=== PATIENT | female | born 1935 | race African-American/Black ===

== ENCOUNTER 2018-03-20 18:55 | Inpatient (IN) | payer MEDICARE ==
[~2018-03-20] VITALS: Ht 162.6 cm; Wt 60.0 kg
--- NOTE | 2018-03-20 20:02 | PHYS DOC ---
Adult General Chief Complaint Chief Complaint: FATIGUE HPI HPI Patient is a 82 year old female who presents with fatigue and altered mental status. Patient was brought to the emergency department by EMS. Family states that they last saw the patient at her normal baseline 2 days ago. The patient lives alone. Patient has no complaints but appears lethargic and is a very poor historian. He states that the patient had a similar episode approximately 6 years ago and was hospitalized for treatment of dehydration. He states that these symptoms are very similar to what she had at that time. Denies any history of dementia. Patient has not been febrile. Family states that the patient has not displayed any strokelike symptoms including unilateral weakness , difficulty with speech or swallowing. They state that she has been somewhat confused. Patient has been reportedly having loose stools and the family thinks that this may have caused her to become dehydrated. Review of Systems Review of Systems Constitutional: Denies fever or chills [] Eyes: Denies change in visual acuity, redness, or eye pain [] HENT: Denies nasal congestion or sore throat [] Respiratory: Denies cough or shortness of breath [] Cardiovascular: Denies chest pain or edema[] GI: Denies abdominal pain, nausea, vomiting, bloody stools or diarrhea [] : Denies dysuria or hematuria [] Musculoskeletal: Denies back pain or joint pain [] Integument: Denies rash or skin lesions [] Neurologic: Denies headache, focal weakness or sensory changes [] All other systems were reviewed and found to be within normal limits, except as documented in this note. Current Medications Current Medications Current Medications Medications (Trade) Dose Ordered Sig/[facility] Start Time Stop Time Status Last Admin Dose Admin Sodium Chloride 1,000 ml @ 1,000 mls/hr Q1H 03/20/18 19:44 03/20/18 20:43 UNV Allergies Allergies Allergies Coded Allergies Type Severity Reaction Last Updated Verified No Known Drug Allergies 03/20/18 No Physical Exam Physical Exam Constitutional: Lethargic, afebrile, no acute distress. [] HENT: Normocephalic, atraumatic, bilateral external ears normal, oropharynx moist, no oral exudates, nose normal. [] Eyes: PERRLA, EOMI, conjunctiva normal, no discharge. [] Neck: Normal range of motion, no tenderness, supple, no stridor. [] Cardiovascular:Heart rate regular rhythm, no murmur [] Lungs & Thorax: Bilateral breath sounds clear to auscultation [] Abdomen: Bowel sounds normal, soft, no tenderness, no masses, no pulsatile masses. [] Skin: Warm, dry, no erythema, no rash. [] Back: No tenderness, no CVA tenderness. [] Extremities: No tenderness, no cyanosis, no clubbing, ROM intact, no edema. [] Neurologic: Lethargic, oriented to person only, normal motor function, normal sensory function, no focal deficits noted. [] Current Patient Data Lab Results Laboratory Tests Test 03/20/18 19:34 03/20/18 21:06 03/20/18 21:45 White Blood Count 8.2 x10^3/uL Red Blood Count 5.14 x10^6/uL Hemoglobin 14.2 g/dL Hematocrit 43.3 % Mean Corpuscular Volume 84 fL Mean Corpuscular Hemoglobin 28 pg Mean Corpuscular Hemoglobin Concent 33 g/dL Red Cell Distribution Width 14.9 % Platelet Count 218 x10^3/uL Neutrophils (%) (Auto) 70 % Lymphocytes (%) (Auto) 21 % Monocytes (%) (Auto) 7 % Eosinophils (%) (Auto) 2 % Basophils (%) (Auto) 1 % Neutrophils # (Auto) 5.7 x10^3uL Lymphocytes # (Auto) 1.7 x10^3/uL Monocytes # (Auto) 0.6 x10^3/uL Eosinophils # (Auto) 0.1 x10^3/uL Basophils # (Auto) 0.1 x10^3/uL Lactic Acid Level 2.3 mmol/L Sodium Level 142 mmol/L Potassium Level 4.6 mmol/L Chloride Level 107 mmol/L Carbon Dioxide Level 29 mmol/L Anion Gap 6 Blood Urea Nitrogen 24 mg/dL Creatinine 1.1 mg/dL Estimated GFR (Cockcroft-Gault) 57.5 BUN/Creatinine Ratio 22 Glucose Level 97 mg/dL Calcium Level 8.0 mg/dL Total Bilirubin 0.3 mg/dL Aspartate Amino Transf (AST/SGOT) 20 U/L Alanine Aminotransferase (ALT/SGPT) 15 U/L Alkaline Phosphatase 95 U/L Total Protein 6.3 g/dL Albumin 2.6 g/dL Albumin/Globulin Ratio 0.7 Lipase 209 U/L Urine Collection Type Unknown Urine Color Yellow Urine Clarity Hazy Urine pH 6.5 Urine Specific [place] 1.015 Urine Protein Neg Urine Glucose (UA) Neg mg/dL Urine Ketones (Stick) Neg mg/dL Urine Blood Neg Urine Nitrite Neg Urine Bilirubin Neg Urine Urobilinogen Dipstick 1 mg/dL Urine Leukocyte Esterase Trace Urine RBC 1-2 /HPF Urine WBC 5-10 /HPF Urine Squamous Epithelial Cells Few /LPF Urine Bacteria Few /HPF Urine Mucus Slight /LPF Current Medications Medications (Trade) Dose Ordered Sig/Ashly Route PRN Reason Start Time Stop Time Status Last Admin Dose Admin Sodium Chloride 1,000 ml @ 1,000 mls/hr Q1H IV 03/20/18 20:30 03/20/18 21:29 DC 03/20/18 20:08 EKG EKG Rhythm strip interpretation by me: Heart rate 78, sinus rhythm, no ectopy[] Radiology/Procedures Radiology/Procedures Head CT and chest x-ray offered but refused by patient's son[] Course & Med Decision Making Course & Med Decision Making Pertinent Labs and Imaging studies reviewed. (See chart for details) Patient started on IV fluids in the emergency department. The patient's chemistry lab work shows an elevated lactic acid level and elevated BOM level consistent with dehydration. Patient has no fever, tachycardiac, and no leukocytosis. Active bacterial infection is thought less likely at this time. I spoke with the patient's son regarding radiographic imaging. He did not feel that this is necessary at this time but was agreeable to IV fluids for treatment. The patient does not display any localizing neurologic symptoms at this time thus I'm willing to respect the patient's son's wishes and withhold CT imaging at this time. Patient however is not appropriate for outpatient treatment at this time and will need continued IV fluids for hydration. I spoke with Dr. Johnson who accepted care of patient in hospital. Dragon Disclaimer Dragon Disclaimer This electronic medical record was generated, in whole or in part, using a voice recognition dictation system. Departure Departure: Impression: Primary Impression: Dehydration Additional Impressions: Fatigue Severe protein-calorie malnutrition Disposition: ADMITTED INPATIENT Admitting Physician: Rebecca Johnson Condition: STABLE Referrals: PCP,NO (PCP) Problem Qualifiers Additional Impressions: Fatigue Fatigue type: unspecified Qualified Codes: R53.83 - Other fatigue DONNA LOPEZ MD Mar 20, 2018 20:02
[2018-03-20 20:05] LABS: BASO # 0.1 x10^3/uL (0.0-0.2); BASO % 1 % (0-3); EOS # 0.1 x10^3/uL (0.0-0.7); EOS % 2 % (0-3); HEMATOCRIT 43.3 % (36.0-47.0); HEMOGLOBIN 14.2 g/dL (12.0-15.5); LYMPH # 1.7 x10^3/uL (1.0-4.8); LYMPH % 21 % (24-48); MEAN CORPUSCULAR HEMOGLOBIN 28 pg (25-35); MEAN CORPUSCULAR HGB CONC 33 g/dL (31-37); MEAN CORPUSCULAR VOLUME 84 fL (79-100); MONO # 0.6 x10^3/uL (0.0-1.1); MONO % 7 % (0-9); NEUT # 5.7 x10^3uL (1.8-7.7); NEUT % 70 % (31-73); PLATELET COUNT 218 x10^3/uL (140-400); RED BLOOD COUNT 5.14 x10^6/uL (3.50-5.40); RED CELL DISTRIBUTION WIDTH 14.9 % (11.5-14.5); WHITE BLOOD COUNT 8.2 x10^3/uL (4.0-11.0)
[2018-03-20] MEDS ORDERED: IV NORMAL SALINE 1,000ML 1,000 ML IV SCH (20:30)
[2018-03-20 21:51] LABS: ALBUMIN 2.6 g/dL (3.4-5.0); ALBUMIN/GLOBULIN RATIO 0.7 (1.0-1.7); CREATININE 1.1 mg/dL (0.6-1.0); GFR 57.5; POTASSIUM 4.6 mmol/L (3.5-5.1); TOTAL BILIRUBIN 0.3 mg/dL (0.2-1.0); TOTAL PROTEIN 6.3 g/dL (6.4-8.2)
[2018-03-20 22:18] LABS: BILIRUBIN,URINE NEG (NEG); CLARITY,URINE HAZY; COLOR,URINE YELLOW; GLUCOSE,URINE NEG (NEG)
[2018-03-20 22:19] LABS: BACTERIA,URINE FEW /HPF (0-FEW); NITRITE,URINE NEG (NEG); SQUAMOUS EPITHELIAL CELL,UR FEW /LPF; UROBILINOGEN,URINE 1 mg/dL (0.2 mg/dL)
[2018-03-20] MEDS ORDERED: ACETAMINOPHEN 325 MG TABLET PO PRN (22:30)
[2018-03-20] MEDS: IV NORMAL SALINE 1,000ML 1,000 ML IV SCH (23:08)
[2018-03-20 23:41] VITALS: BP 176/78
[2018-03-21 05:39] VITALS: BP 159/79
[2018-03-21] MEDS: IV NORMAL SALINE 1,000ML 1,000 ML IV SCH (06:23)
[2018-03-21 06:36] LABS: BASO % 1 % (0-3); EOS # 0.2 x10^3/uL (0.0-0.7); EOS % 2 % (0-3); HEMATOCRIT 39.8 % (36.0-47.0); HEMOGLOBIN 13.1 g/dL (12.0-15.5); LYMPH # 1.6 x10^3/uL (1.0-4.8); LYMPH % 22 % (24-48); MEAN CORPUSCULAR HEMOGLOBIN 28 pg (25-35); MEAN CORPUSCULAR HGB CONC 33 g/dL (31-37); MEAN CORPUSCULAR VOLUME 85 fL (79-100); MONO # 0.5 x10^3/uL (0.0-1.1); MONO % 7 % (0-9); NEUT % 69 % (31-73); PLATELET COUNT 207 x10^3/uL (140-400); RED BLOOD COUNT 4.72 x10^6/uL (3.50-5.40); RED CELL DISTRIBUTION WIDTH 14.9 % (11.5-14.5); WHITE BLOOD COUNT 7.3 x10^3/uL (4.0-11.0)
[2018-03-21 06:41] LABS: CREATININE 0.9 mg/dL (0.6-1.0); GFR 72.5; POTASSIUM 4.3 mmol/L (3.5-5.1)
[2018-03-21 11:02] VITALS: BP 146/69
== END 2018-03-21 14:00 | disposition left against medical advice (07) | DRG 640 ==
LOC: ER 18:55 → 1 SOUTH 22:24
PROVIDERS: ADMIT Internal Medicine; ATTEND Internal Medicine
DX: E86.0 Dehydration (principal); E43 Unspecified severe protein-calorie malnutrition; Z68.22 Body mass index [BMI] 22.0-22.9, adult
CPT/HCPCS: 36415; 80048; 80053; 81001; 83605; 83690; 85025; 87086; 96360; 96361; 99285-25; J7030

== ENCOUNTER 2018-04-28 12:11 | Inpatient (IN) | payer MEDICARE ==
[~2018-04-28] VITALS: Ht 162.6 cm; Wt 61.0 kg
[2018-04-28] MEDS ORDERED: IV NORMAL SALINE 1,000ML 1,000 ML IV ONE (12:15)
--- NOTE | 2018-04-28 12:19 | PHYS DOC ---
Past History Past Medical History: Hypertension Past Surgical History: No Surgical History Alcohol Use: None Drug Use: None Adult General Chief Complaint Chief Complaint: ALTERED MENTAL STATUS HPI HPI Patient is a 82-year-old female with a history of hypertension who is brought in by ambulance with altered mental status apparently she was sitting out on the porch in the heat for an unknown time. She was last seen normal yesterday by her meals and wheals provider. History limited by the patient's mental status but medics noted that she was warm to the touch and listing to the right Review of Systems Review of Systems Limited by altered mental status. Allergies Allergies Allergies Coded Allergies Type Severity Reaction Last Updated Verified No Known Drug Allergies 03/20/18 No Physical Exam Physical Exam Constitutional: Well developed, mild distress moaning] HENT: Normocephalic, atraumatic, bilateral external ears normal, oropharynx moist, no oral exudates, nose normal. [] Eyes: PERRLA, EOMI, conjunctiva normal, no discharge. [] Neck: Normal range of motion, no tenderness, supple, no stridor. [] Cardiovascular:Heart rate regular rhythm, no murmur [] Lungs & Thorax: Decreased breath sounds at bilateral bases Abdomen: Bowel sounds normal, soft, no tenderness, no masses, no pulsatile masses. [] Skin: Warm, dry, there is erythema noted to bilateral anterior shins. Back: No tenderness, no CVA tenderness. [] Extremities: No tenderness, no cyanosis, no clubbing, ROM intact, no edema. [] Neurologic: Eyes open to voice grossly moving all extremities generalized weakness throughout. Patient is listing to the right in the bed there is no obvious facial droop speech is somewhat slurred the patient is able to answer simple questions. GCS eyes 3 verbal 3 motor 6 Psychologic: Affect normal, judgement normal, mood normal. [] EKG EKG []EKG shows a sinus rhythm rate of 88 no acute ischemic changes noted Radiology/Procedures Radiology/Procedures [] Impressions: Low lung volumes and technique accentuates heart size and pulmonary vascularity. There is questionable airspace opacity identified in the right hilar region could be atelectasis or infiltrate or mass. Examination limited due to positioning. Mild elevation of the right hemidiaphragm. IMPRESSION: Airspace opacity identified in the right hilar region could be atelectasis or infiltrate or mass. Examination limited due to positioning. Consider cross-sectional imaging with CT with IV contrast if clinically feasible for further evaluation. Electronically signed by: Daern Mendosa MD (04/28/2018 1:00 PM) [facility] CT HEAD WITHOUT CONTRAST History: AMS, fever, cough Comparison: CT head without contrast, March 07, 2013. Technique: Axial images are obtained of the head from the skull base through the vertex without IV contrast. Findings: No mass-effect, midline shift, extra-axial fluid collection, hemorrhage, or obvious acute infarction is identified. Basilar cisterns are patent. The ventricles and sulci are prominent, consistent with age-related cerebral atrophy. There is moderate periventricular white matter hypoattenuation. This is a nonspecific finding but is commonly due to chronic small vessel ischemic disease. 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 Bone windows demonstrate no acute calvarial abnormality. The visualized paranasal sinuses are clear. Mastoid air cells are well aerated. IMPRESSION: 1. No acute intracranial abnormality. 2. Moderate periventricular white matter changes of chronic small vessel ischemic disease. 3. 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 Electronically signed by: Zack Donald MD (04/28/2018 1:00 PM) [id number] Course & Med Decision Making Course & Med Decision Making Pertinent Labs and Imaging studies reviewed. (See chart for details) []Oral temperature 100.9. 82-year-old female brought in by ambulance with altered mental status after being found sitting on a front porch. She does have a fever differential would include infectious versus WEATHER exposure. We will do blood cultures infectious workup hydrated Tylenol and go from there. Patient will likely require admission for monitoring and further treatment. CVAs a possibility however given the fever I feel that the etiology of the fever is likely causing the altered mental status. Final ER plan: Lab work actually looks fairly unremarkable overall. Troponin negative chest x-ray suggestive of pneumonia C Matt from radiologist. There is some technique issue but this looks markedly different than her last chest x- ray given the fever I feel that pneumonia is very possible ceftriaxone and doxycycline were given in the emergency room as well as IV fluids. Head CT showed no acute changes. Fevers down after fluids and observation in the er. spoke with mitzy at 150 pm. Son did report that the patient has seen on the past and as such Dr. Browning has accepted admission for treatment of altered mental status likely pneumonia. Of note the son had at one point requested in the first 5 minutes of this patient's ER visit an "immediate" transfer to . When asked his motivation he did mention several issues, primary one that he was concerned with was 5 years of vision loss he thinks that the patient is having cataracts and he would like that to be addressed among ""get her checked out and have lots of tests run right away". I did mention that we would need to delineate the reason for her acute change in mental status and fever today, and could focus on her gradual decline in vision on an outpatient basis, and we could discuss disposition later. Ultimately given the likely diagnosis of pneumoniafairly straightforward treatment patient's son did consent to admission here at this hospital. I do not see a current reason for transfer to [facility][1] for level of care Dragon Disclaimer Dragon Disclaimer This electronic medical record was generated, in whole or in part, using a voice recognition dictation system. Departure Departure: Impression: Primary Impression: Fever Disposition: ADMITTED INPATIENT Admitting Physician: Al Browning Condition: STABLE Referrals: PCP,JAMILA (PCP) BRENDA RIGGS MD Apr 28, 2018 12:19
--- NOTE | 2018-04-28 12:27 | EKG ---
[address] [address] Test Date: 2018-04-28 Test Time: 12:25:47 Pat Name: ANISH KING Department: Room: Gender: F Rn Family: LESTER : 1935 Requested By: BRENDA RIGGS Order Number: [id number] Reading MD: Timothy Louie MD Measurements Intervals [place] Rate: 88 P: 43 TX: 156 QRS: 31 QRSD: 64 T: 57 QT: 376 QTc: 459 Interpretive Statements SINUS RHYTHM Electronically Signed On 05-03-2018 10:38:09 CDT by Timothy Louie MD
[2018-04-28] MEDS ORDERED: ACETAMINOPHEN 650 MG SUPP.RECT. PR ONE (12:45)
--- NOTE | 2018-04-28 13:03 | RAD ---
PQRS Compliance Statement: One or more of the following individualized dose reduction techniques were utilized for this examination: 1. Automated exposure control 2. Adjustment of the mA and/or kV according to patient size 3. Use of iterative reconstruction technique CT HEAD WITHOUT CONTRAST History: AMS, fever, cough Comparison: CT head without contrast, March 07, 2013. Technique: Axial images are obtained of the head from the skull base through the vertex without IV contrast. Findings: No mass-effect, midline shift, extra-axial fluid collection, hemorrhage, or obvious acute infarction is identified. Basilar cisterns are patent. The ventricles and sulci are prominent, consistent with age-related cerebral atrophy. There is moderate periventricular white matter hypoattenuation. This is a nonspecific finding but is commonly due to chronic small vessel ischemic disease. 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 Bone windows demonstrate no acute calvarial abnormality. The visualized paranasal sinuses are clear. Mastoid air cells are well aerated. IMPRESSION: 1. No acute intracranial abnormality. 2. Moderate periventricular white matter changes of chronic small vessel ischemic disease. 3. 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 Electronically signed by: Zack Donald MD (04/28/2018 1:00 PM) [id number]
--- NOTE | 2018-04-28 13:03 | RAD ---
Examination: Single frontal view the chest HISTORY: History of fever, cough COMPARISON: 03/07/2013 FINDINGS: Low lung volumes and technique accentuates heart size and pulmonary vascularity. There is questionable airspace opacity identified in the right hilar region could be atelectasis or infiltrate or mass. Examination limited due to positioning. Mild elevation of the right hemidiaphragm. IMPRESSION: Airspace opacity identified in the right hilar region could be atelectasis or infiltrate or mass. Examination limited due to positioning. Consider cross-sectional imaging with CT with IV contrast if clinically feasible for further evaluation. Electronically signed by: Daren Mendosa MD (04/28/2018 1:00 PM) [place] [id number]
[2018-04-28 13:12] LABS: ALBUMIN 2.9 g/dL (3.4-5.0); ALBUMIN/GLOBULIN RATIO 0.6 (1.0-1.7); CALCIUM 8.7 mg/dL (8.5-10.1); GFR 64.2; POTASSIUM 4.2 mmol/L (3.5-5.1); TOTAL BILIRUBIN 1.1 mg/dL (0.2-1.0); TOTAL PROTEIN 7.6 g/dL (6.4-8.2)
[2018-04-28 13:32] LABS: BASO # 0.1 x10^3/uL (0.0-0.2); BASO % 1 % (0-3); EOS % 0 % (0-3); HEMATOCRIT 41.3 % (36.0-47.0); HEMOGLOBIN 13.5 g/dL (12.0-15.5); LYMPH # 0.9 x10^3/uL (1.0-4.8); LYMPH % 9 % (24-48); MEAN CORPUSCULAR HEMOGLOBIN 28 pg (25-35); MEAN CORPUSCULAR HGB CONC 33 g/dL (31-37); MEAN CORPUSCULAR VOLUME 84 fL (79-100); MONO # 0.9 x10^3/uL (0.0-1.1); MONO % 8 % (0-9); NEUT # 8.6 x10^3uL (1.8-7.7); NEUT % 82 % (31-73); PLATELET COUNT 212 x10^3/uL (140-400); RED BLOOD COUNT 4.89 x10^6/uL (3.50-5.40); RED CELL DISTRIBUTION WIDTH 14.9 % (11.5-14.5); WHITE BLOOD COUNT 10.5 x10^3/uL (4.0-11.0)
[2018-04-28 13:41] LABS: BACTERIA,URINE MANY /HPF (0-FEW); BILIRUBIN,URINE NEG (NEG); CLARITY,URINE HAZY; COLOR,URINE YELLOW; GLUCOSE,URINE NEG (NEG); NITRITE,URINE POS (NEG); RBC,URINE RARE /HPF (0-2); SQUAMOUS EPITHELIAL CELL,UR FEW /LPF; UROBILINOGEN,URINE 0.2 mg/dL (0.2 mg/dL)
[2018-04-28] MEDS ORDERED: DOXYCYCLINE HYCLATE 100 MG in IV DEXTROSE 5% 100 ML IV ONE (14:00)
[2018-04-28] MEDS ORDERED: cefTRIAXone IV Push 1 GM VIAL. IVP ONE ×2 (14:00→14:15)
[2018-04-28] MEDS ORDERED: IV DEXTROSE 5% 100 ML IV ONE (14:02)
[2018-04-28] MEDS ORDERED: DOXYCYCLINE HYCLATE 100 MG VIAL IV ONE (14:03)
[2018-04-28 16:18] VITALS: BP 188/99
[2018-04-28] MEDS ORDERED: AZITHROMYCIN 250 MG in IV NORMAL SALINE 250ML 250 ML IV SCH (18:30)
[2018-04-28] MEDS ORDERED: cefTRIAXone IV Push 1 GM VIAL. IVP SCH (18:30)
[2018-04-28] MEDS: IV NORMAL SALINE 1,000ML 1,000 ML IV SCH (18:45)
[2018-04-28 19:25] VITALS: BP 177/98
[2018-04-28 23:01] VITALS: BP 153/91
--- NOTE | 2018-04-29 03:15 | CONS ---
DATE OF CONSULTATION: 04/28/2018 REASON FOR CONSULTATION: Acute mental status changes, rule out stroke. HISTORY OF PRESENT ILLNESS: This is an 82-year-old right handed -[place] female who was admitted to the Emergency Room after she was found by [employer] Whe[employer] provider sitting in a heat for unknown period of time. The patient was unresponsive. According to her son, the patient stayed in the heat for approximately 3 hours as she felt cold in her house. The patient is unable to communicate and provide any information. Apparently, the patient does not take any medication at home. Initial enhanced head CT scan revealed evidence of a moderate periventricular white matter chronic small vessel ischemic disease and old left thalamic infarct, otherwise no acute intracranial process. Initial chest x-ray revealed possibility of a right infiltrate versus atelectasis. The patient was started on antibiotic for possible right pneumonia. FAMILY HISTORY: Significant for hypertension. SOCIAL HISTORY: Not obtainable; however, the patient has no history of smoking, alcohol drinking or illicit drug use. CURRENT HOME MEDICATIONS: None. REVIEW OF SYSTEMS: None obtainable. PHYSICAL EXAMINATION: GENERAL: Thin -[place] female in no acute distress. VITAL SIGNS: She weighs 132.5 pounds, blood pressure 177/98, respiratory rate 20, pulse is 90, temperature 98.9, oxygen saturation 99% on room air. HEENT: Normocephalic, atraumatic, otherwise unremarkable. NECK: Supple. Negative for carotid bruit, no lymphadenopathy or thyromegaly. LUNGS: Diminished breath sounds. CARDIOVASCULAR: Regular rate and rhythm, normal S1, S2. ABDOMEN: Soft. Bowel sounds positive. EXTREMITIES: Negative for cyanosis, clubbing, pitting edema. NEUROLOGIC: 1. Mental status: The patient is drowsy, but arousable, opens eyes to commands. She follows single step commands. The patient cannot communicate. Further evaluation of her mental status is limited. 2. Cranial nerves: Pupils sluggishly reactive to light. There is mild right facial asymmetry of his central type. Hearing appeared to be intact and further evaluation of her cranial nerves are limited at this time. 3. Motor examination: The patient moves her upper extremities equally. Strength was 4/5 throughout. 4. Sensory examination: Revealed normal pinprick and light sensitive. Deep tendon reflexes are asymmetric and hypoactive with absent Achilles responses. 5. Gait: The patient is unsteady. LABORATORY DATA: CBC revealed white blood cells of 10,500, hemoglobin 13.5, hematocrit of 41.3, platelet count 212,000. Chemistry reveals sodium of 136, potassium 4.2, chloride 100, CO2 of 28, BUN 11, creatinine 1, glucose is 111 and calcium 8.7. Liver enzymes, normal AST and low ALT. Cardiac enzymes normal. Troponin is normal. Lactic acid is 1.3. Urinalysis is negative for urinary tract infection. IMAGING STUDIES: Head CT scan and chest x-ray was well performed as mentioned above in history of present illness. IMPRESSION AND PLAN: 1. Acute encephalopathy, probably multifactorial including heatstroke and right pneumonia. 2. Dysphagia and possible aphasia with right facial asymmetry, rule out stroke. 3. Hypertension. RECOMMENDATIONS: The patient needs a stroke workup including MRI and speech evaluation for dysphagia along with physical therapy. Continue with current management initiated by . ____. BENJY TRACY MD DR: WOODY/jaciel JOB#: [id number] / [id number]
[2018-04-29] MEDS: IV NORMAL SALINE 1,000ML 1,000 ML IV SCH (05:26)
[2018-04-29 05:44] VITALS: BP 171/89
[2018-04-29 06:52] LABS: BASO # 0.1 x10^3/uL (0.0-0.2); BASO % 1 % (0-3); EOS % 0 % (0-3); HEMATOCRIT 40.9 % (36.0-47.0); HEMOGLOBIN 13.3 g/dL (12.0-15.5); LYMPH # 0.6 x10^3/uL (1.0-4.8); LYMPH % 4 % (24-48); MEAN CORPUSCULAR HEMOGLOBIN 27 pg (25-35); MEAN CORPUSCULAR HGB CONC 33 g/dL (31-37); MEAN CORPUSCULAR VOLUME 84 fL (79-100); MONO # 0.7 x10^3/uL (0.0-1.1); MONO % 5 % (0-9); NEUT # 11.6 x10^3uL (1.8-7.7); NEUT % 90 % (31-73); PLATELET COUNT 242 x10^3/uL (140-400); RED BLOOD COUNT 4.87 x10^6/uL (3.50-5.40); RED CELL DISTRIBUTION WIDTH 14.9 % (11.5-14.5); WHITE BLOOD COUNT 12.9 x10^3/uL (4.0-11.0)
[2018-04-29 07:05] LABS: CALCIUM 8.5 mg/dL (8.5-10.1); CREATININE 0.8 mg/dL (0.6-1.0); GFR 83.1; POTASSIUM 3.5 mmol/L (3.5-5.1)
--- NOTE | 2018-04-29 10:17 | HP ---
ADMIT DATE: 04/28/2018 HISTORY OF PRESENT ILLNESS: An 82-year-old -[place] female admitted through the Emergency Room, found by [employer] sitting in the heat for unknown period of time. She was feeling cold in her house, so she sat outside for at least 3 hours. She was unable to communicate basically unresponsive. The patient was cooled down, given IV fluids, and admitted to the hospital for further evaluation. CT scan did not show any acute infarct, possibly an old infarct, but otherwise unremarkable, no acute findings. The patient was admitted and started on antibiotics for possible right lower lobe pneumonia double antibiotics there. PAST MEDICAL HISTORY: Possible dementia. FAMILY HISTORY: Positive for hypertension. SOCIAL HISTORY: Unobtainable. No history of smoking or alcohol per son's report. CURRENT MEDICATIONS: None. ALLERGIES: The patient has no known drug allergies. REVIEW OF SYSTEMS: Unobtainable. PHYSICAL EXAMINATION: GENERAL: This is a pleasant -[place] female, well developed, however, she is completely knocked out. She is not able to give any type of a history. VITAL SIGNS: Blood pressure 170/90, respiratory rate 20, pulse 90, temperature 98.9, good oxygen saturation. The patient is found breathing through her mouth. HEENT: The patient's head was atraumatic, normocephalic. Eyes: PERRL. NECK: Supple, without JVD, carotid bruits, or thyromegaly. LUNGS: Diminished, but clear. CARDIOVASCULAR: Regular sinus rhythm, S1, S2, without murmur, rub, thrill, or extra heart sounds. ABDOMEN: Soft, nontender, no rebound or guarding. Positive bowel sounds, no hepatosplenomegaly. EXTREMITIES: No clubbing, cyanosis, nor edema. NEUROLOGIC: As noted, the patient not alert. The patient not able to follow commands. Pupils were sluggish, reactive to light, facial asymmetry. The patient moves her upper extremities fairly well. Strength fairly good. LABORATORY DATA: The patient's white count 10,000, hemoglobin 13.5, platelets normal. Chemistry: Sodium 136, potassium 4., , glucose 110, calcium 8.7. The patient's lactic acid 1.3. UA negative. Chest x-ray shows the possibility of a pneumonic process. IMPRESSION: 1. Acute encephalopathy, probably multifactorial with heat stroke, right pneumonia. 2. Dysphagia, hypertension, unresponsiveness. PLAN: The patient will be admitted for further evaluation and treatment, IV fluids. Neurology consult, IV antibiotic therapy as indicated. BENJY TRACY MD DR: WOODY/jaciel JOB#: [id number] / [id number]
[2018-04-29 11:05] VITALS: BP 179/93
[2018-04-29 11:06] VITALS: BP 164/82
[2018-04-29] MEDS ORDERED: cefTRIAXone IV Push 1 GM VIAL. IVP SCH (14:00)
--- NOTE | 2018-04-29 21:25 | DS ---
DATE OF DISCHARGE: 04/29/2018 HOSPITAL COURSE: An 82-year-old -[place] female came in and was found apparently passed out on the porch in this hot weather, came in basically unresponsive show that she did have an infiltrating process in her lungs. She was treated for pneumonia, but the patient made very little progress mentally. Her CT scan was unremarkable. MRI was needed, not available here. Dr. Us was kind enough to evaluate the patient and recommended that we transfer down to , per family's request. In any case, the patient was stable at the time of discharge. She was transferred out. Blood cultures were still pending. The patient's chemistries were basically unremarkable. Lactate was 1.3, white count 12.9. She will continue on IV antibiotic therapy and continue to monitor the patient down there at the [facility]. BENJY TRACY MD DR: WOODY/jaciel JOB#: [id number] / [id number]
--- NOTE | 2018-04-30 01:27 | PN ---
DATE: 04/29/2018 SUBJECTIVE: The patient continued to be aphasic, not able to communicate; however, she follows commands. OBJECTIVE: GENERAL: A well-developed, well-nourished female, in no acute distress. VITAL SIGNS: Blood pressure 171/89, respiratory rate 24, pulse is 75 and regular, temperature 98.1, oxygen saturation is 97% on room air. HEENT: Normocephalic, atraumatic, otherwise unremarkable. NECK: Supple. Negative for carotid bruit, lymphadenopathy or thyromegaly. LUNGS: Clear to A and P. CARDIOVASCULAR: Regular rhythm, normal S1, S2. ABDOMEN: Soft. Bowel sounds positive. EXTREMITIES: Negative for cyanosis, clubbing, or pitting edema. NEUROLOGIC: Mental status: The patient is awake and follows commands. She is aphasic, not able to communicate. Her comprehension is intact. Cranial nerves: The pupils are equal and extraocular movements are intact. There is no nystagmus. There is no facial asymmetry this morning. The patient had a right facial asymmetry yesterday. The gag is weak. The patient shrugs her shoulders symmetrically and protrudes her tongue in the midline. Motor examination: No focal muscle bulk was seen. Tone is normal. Strength is 4/5 throughout. Sensory examination reveals normal pinprick on light touch senses. Deep tendon reflexes are hypoactive with absent Achilles responses. Gait: The patient had unsteady stance and uses a walker for ambulation. LABORATORY DATA: CBC revealed white blood cells of 12,900; hemoglobin 13.3; hematocrit 40.9; platelet count 242,000. Chemistry reveals sodium 139, potassium was 3.5, chloride 103, CO2 of 24, BUN 9, creatinine 0.8, glucose 102, and calcium 8.5. Urinalysis is positive for urine nitrite and negative for urine leukocyte esterase with many bacteria. IMPRESSION: 1. Acute encephalopathy, probably multifactorial including heatstroke and right pneumonia, questionable urinary tract infections. 2. Dysphagia and aphasia, rule out brainstem stroke. 3. Hypertension. RECOMMENDATION: Await for brain MRI and MRA and evaluation for dysphagia along with physical therapy; otherwise continue with the current management initiated by Dr. Browning. The patient's son wants the patient to be transferred to [facility] for further evaluation of her stroke. Therefore, I did talk to transfer team this morning and give him all the information about this patient and we are waiting for the response. M Angelina WESLEY MD DR: LUCERO/jaciel JOB#: [id number] / [id number]
== END 2018-04-29 12:20 | disposition short-term general hospital (02) | DRG 871 ==
LOC: ER 12:11 → EEVIPCON 12:11 → 1 SOUTH 15:42
PROVIDERS: ADMIT Family Medicine; ATTEND Family Medicine
DX: A41.9 Sepsis, unspecified organism (principal); J18.9 Pneumonia, unspecified organism; G93.40 Encephalopathy, unspecified; T67.0XXA Heatstroke and sunstroke, initial encounter; R47.01 Aphasia; I10 Essential (primary) hypertension; R13.10 Dysphagia, unspecified; X30.XXXA Exposure to excessive natural heat, initial encounter; Z82.49 Family history of ischemic heart disease and other diseases of the circulatory system; Z86.73 Personal history of transient ischemic attack (TIA), and cerebral infarction without residual deficits
CPT/HCPCS: 36415; 51701; 70450; 71045; 80048; 80053; 81001; 82550; 83605; 84484; 85025; 87040; 87205; 93005; 96365; 96375; J0456; J0696; J3490; J7050; 99285-25; J7030